=== PATIENT | male | born 1990 | race Caucasian/White ===

== ENCOUNTER 2022-11-24 09:59 | Emergency (ER) | payer BC, OTHER ==
[~2022-11-24] VITALS: Ht 172.7 cm; Wt 102.3 kg
[2022-11-24 10:11] VITALS: BP 140/87; TEMP 97.9; O2SAT 100
[2022-11-24] MEDS ORDERED: HALOPERIDOL 5MG/ML 1ML VIAL IV ONE (10:15)
[2022-11-24] MEDS ORDERED: NS 1,000 ML IV ONE ×2 (10:15→11:40)
[2022-11-24] MEDS ORDERED: diphenhydrAMINE 50MG/ML VIAL IV ONE (10:15)
[2022-11-24] MEDS ORDERED: METOCLOPRAMIDE INJ 10MG/2ML VIAL IV ONE (10:15)
[2022-11-24 10:35] LABS: BASO % 0.3 % (0.0-1.0); EOS # 0.1 10^3/uL (0.0-0.5); EOS % 0.5 % (0.0-3.0); HEMATOCRIT 42.6 % (42.0-52.0); HEMOGLOBIN 14.1 g/dl (13.5-17.5); LYMPH # 1.5 10^3/uL (1.5-5.0); MEAN CORPUSCULAR HEMOGLOBIN 29.4 pg (27.0-33.0); MEAN CORPUSCULAR HGB CONC 33.1 g/dl (32.0-36.5); MEAN CORPUSCULAR VOLUME 88.8 fl (80.0-96.0); MONO # 0.5 10^3/uL (0.0-0.8); MONO % 4.1 % (2.0-8.0); NEUTROPHILS # 9.7 10^3/uL (1.5-8.5); NEUTROPHILS % 81.8 % (36.0-66.0); PLATELET COUNT, AUTOMATED 310 10^3/uL (150-450); WHITE BLOOD COUNT 11.8 10^3/uL (4.0-10.0)
[2022-11-24 11:30] LABS: LIPASE 39 U/L (12-53)
[2022-11-24 11:32] LABS: ALKALINE PHOSPHATASE 62 U/L (46-116); ALT/SGPT 40 U/L (7.0-40); AST/SGOT 11 U/L (<34); BILIRUBIN,DIRECT < 0.1 MG/DL (<0.4); BILIRUBIN,TOTAL 0.3 MG/DL (0.3-1.2); BLOOD UREA NITROGEN 13 MG/DL (9-23); CALCIUM LEVEL 9.5 MG/DL (8.5-10.1); CARBON DIOXIDE LEVEL 23 MMOL/L (20-31); CHLORIDE LEVEL 103 MMOL/L (98-107); CREATININE FOR GFR 0.93 MG/DL (0.70-1.30); GLOMERULAR FILTRATION RATE > 60.0 (>60); GLUCOSE, FASTING 282 MG/DL (60-100); POTASSIUM SERUM 5.3 MMOL/L (3.5-5.1); SODIUM LEVEL 136 MMOL/L (136-145)
[2022-11-24] MEDS ORDERED: ISOVUE-370 76% 100ML VIAL As Ordered ONE (13:09)
[2022-11-24] MEDS ORDERED: PROMETHAZINE 25MG/ML 1ML VIAL IV ONE (13:35)
[2022-11-24] MEDS ORDERED: KETOROLAC 30 MG/ML 1ML VIAL IV ONE (14:10)
== END 2022-11-24 15:50 | disposition home or self-care (01) ==
LOC: M ED 09:59 → EDBD 09:59 → M ED 15:50
DX: R11.2 Nausea with vomiting, unspecified (principal); E11.9 Type 2 diabetes mellitus without complications; G43.909 Migraine, unspecified, not intractable, without status migrainosus; K76.0 Fatty (change of) liver, not elsewhere classified; Z88.1 Allergy status to other antibiotic agents; Z88.0 Allergy status to penicillin; Z88.8 Allergy status to other drugs, medicaments and biological substances
CPT/HCPCS: 80048; 80076; 83690; 85025; 96374; 96375; 99284; J1200; J1630; J1885; J2550; J2765

== ENCOUNTER 2023-12-02 08:20 | Emergency (ER) | payer BC ==
[~2023-12-02] VITALS: Ht 177.8 cm; Wt 93.2 kg
[2023-12-02 08:41] VITALS: TEMP 96.9
[2023-12-02 08:49] LABS: BASO # 0.1 10^3/uL (0.0-0.2); BASO % 0.3 % (0.0-1.0); EOS # 0.1 10^3/uL (0.0-0.5); EOS % 0.3 % (0.0-3.0); HEMATOCRIT 44.5 % (42.0-52.0); HEMOGLOBIN 14.8 g/dl (13.5-17.5); LYMPH # 2.4 10^3/uL (1.5-5.0); LYMPH % 13.4 % (24.0-44.0); MEAN CORPUSCULAR HEMOGLOBIN 29.7 pg (27.0-33.0); MEAN CORPUSCULAR HGB CONC 33.3 g/dl (32.0-36.5); MEAN CORPUSCULAR VOLUME 89.4 fl (80.0-96.0); MONO # 0.9 10^3/uL (0.0-0.8); MONO % 4.7 % (2.0-8.0); NEUTROPHILS # 14.8 10^3/uL (1.5-8.5); NEUTROPHILS % 80.8 % (36.0-66.0); PLATELET COUNT, AUTOMATED 354 10^3/uL (150-450); RED BLOOD COUNT 4.98 10^6/uL (4.30-6.10); WHITE BLOOD COUNT 18.3 10^3/uL (4.0-10.0)
[2023-12-02 09:15] LABS: ALBUMIN 4.3 G/DL (3.2-5.2); BILIRUBIN,DIRECT 0.1 MG/DL (<0.4); BILIRUBIN,TOTAL 0.6 MG/DL (0.3-1.2); TOTAL PROTEIN 7.3 G/DL (5.7-8.2)
[2023-12-02] MEDS: METOCLOPRAMIDE INJ 10MG/2ML VIAL IV ONE (09:28)
[2023-12-02] MEDS: NS 1,000 ML IV ONE (09:28)
[2023-12-02] MEDS: diphenhydrAMINE 50MG/ML VIAL IV STA (09:28)
[2023-12-02] MEDS: HALOPERIDOL LACTATE 5MG/ML VIAL IV STA (09:30)
[2023-12-02] MEDS ORDERED: ISOVUE-370 76% 100ML VIAL As Ordered ONE (09:49)
[2023-12-02] MEDS: PROMETHAZINE 25MG/ML 1ML VIAL IV ONE (11:14)
[2023-12-02] MEDS ORDERED: MED REC CURRENTLY UNOBTAINABLE XX SCH (11:35)
[2023-12-02 13:14] LABS: AMPHETAMINES LEVEL URINE NEGATIVE (NEGATIVE); BARBITURATES URINE NEGATIVE (NEGATIVE); BENZODIAZEPINES URINE NEGATIVE (NEGATIVE); COCAINE METABOLITE URINE NEGATIVE (NEGATIVE); METHADONE URINE NEGATIVE (NEGATIVE); OPIATES URINE NEGATIVE (NEGATIVE); PHENCYCLIDINE URINE NEGATIVE (NEGATIVE)
[2023-12-02 13:16] VITALS: BP 153/82; O2SAT 99
[2023-12-02 13:17] LABS: CANNABINOIDS URINE POSITIVE (NEGATIVE)
== END 2023-12-02 13:31 | disposition home or self-care (01) ==
LOC: M ED 08:20
DX: R11.15 Cyclical vomiting syndrome unrelated to migraine (principal); R00.1 Bradycardia, unspecified; E11.9 Type 2 diabetes mellitus without complications; J45.909 Unspecified asthma, uncomplicated; F41.9 Anxiety disorder, unspecified; F32.A Depression, unspecified; K76.0 Fatty (change of) liver, not elsewhere classified; F12.10 Cannabis abuse, uncomplicated; Z88.1 Allergy status to other antibiotic agents; Z88.8 Allergy status to other drugs, medicaments and biological substances
CPT/HCPCS: 74177; 80047; 80076; 80307; 83690; 85025; 93005; 93041; 96374; 96375; 99285; J1200; J2550; J2765; Q9967